=== PATIENT | female | born 1935 ===

== ENCOUNTER 2018-05-19 15:27 | Inpatient (IN) | payer OTHER, MEDICAID ==
[~2018-05-19] VITALS: Ht 157.5 cm; Wt 59.0 kg
[2018-05-19] MEDS ORDERED: ASPI81TA31 PO (15:39)
[2018-05-19] MEDS ORDERED: LORA0.5T PO (15:39)
[2018-05-19] MEDS ORDERED: CARB200T PO (15:39)
[2018-05-19] MEDS ORDERED: SIMV40TA5 PO (15:39)
[2018-05-19] MEDS ORDERED: LITH150C PO (15:39)
[2018-05-19] MEDS ORDERED: ENAL5TAB PO (15:39)
[2018-05-19 16:03] LABS: BASOPHILS # (AUTO) 0.1 K/uL (0.0-8.0); BASOPHILS % (AUTO) 1.1 % (0.0-2.0); EOSINOPHILS # (AUTO) 0.3 K/uL (0.0-0.7); EOSINOPHILS % (AUTO) 5.1 % (0.0-7.0); HEMATOCRIT 34.4 % (31.2-41.9); HEMOGLOBIN 11.7 g/dL (10.9-14.3); LYMPHOCYTES # (AUTO) 1.8 K/uL (20.0-40.0); LYMPHOCYTES % (AUTO) 29.7 % (20.5-51.5); MEAN CORPUSCULAR HEMOGLOBIN 32.3 uug (24.7-32.8); MEAN CORPUSCULAR HGB CONC 34 g/dL (32.3-35.6); MEAN CORPUSCULAR VOLUME 95.4 fL (75.5-95.3); MONOCYTES # (AUTO) 0.4 K/uL (2.0-10.0); MONOCYTES % (AUTO) 6.8 % (0.0-11.0); NEUTROPHILS # (AUTO) 3.5 K/uL (1.8-8.9); NEUTROPHILS % (AUTO) 57.3 % (38.5-71.5); PLATELET COUNT (AUTO) 168 K/uL (179-408); RED BLOOD CELL COUNT(AUTO) 3.61 MIL/uL (3.63-4.92); WHITE BLOOD COUNT (AUTO) 6.1 K/uL (3.8-11.8)
[2018-05-19 16:11] LABS: CARBON DIOXIDE 26 mmol/L (21-32); CHLORIDE 106 mmol/L (98-107); CREATININE 1.3 mg/dL (0.6-1.3); GLUCOSE 96 mg/dL (74-106); POTASSIUM 4.4 mmol/L (3.5-5.1); UREA NITROGEN, BLOOD 22 mg/dL (7-18)
[2018-05-19 16:17] LABS: ALANINE AMINOTRANSFERASE 18 U/L (14-59); ALKALINE PHOSPHATASE 120 U/L (50-136); ASPARTATE AMINOTRANSFERASE 12 U/L (15-37); BILIRUBIN,DIRECT 0.1 mg/dL (0.0-0.2); BILIRUBIN,TOTAL 0.2 mg/dL (0.2-1.0); TOTAL PROTEIN, SERUM 7.7 g/dL (6.4-8.2)
[2018-05-19 16:23] LABS: ETHANOL < 3 MG/DL (0-0)
[2018-05-19 16:24] LABS: *BILIRUBIN,URIN NEGATIVE (NEGATIVE); *BLOOD, URINE NEGATIVE (NEGATIVE); *CLARITY,URINE CLEAR (CLEAR); *COLOR,URINE LIGHT YELLOW (YELLOW); *KETONES,URINE NEGATIVE (NEGATIVE); *PROTEIN,URINE NEGATIVE (NEGATIVE); *UROBILINOGEN,URINE 0.2 E.U./dl (NORMAL); LEUKOCYTE ESTERASE ,URINE TRACE (NEGATIVE); NITRITE, URINE NEGATIVE (NEGATIVE); PH,URINE 5.5 (5.0-8.0); UGLUCOSE NEGATIVE (NEGATIVE)
[2018-05-19 16:25] LABS: THYROID STIMULATING HORMONE 0.525 mIU/mL (0.358-3.740)
[2018-05-19 16:35] LABS: *AMPHETAMINE, URINE NEGATIVE (NEGATIVE); *BARBITURATE, URINE NEGATIVE (NEGATIVE); *CANNABINOID, URINE NEGATIVE (NEGATIVE); *COCCAINE, URINE NEGATIVE (NEGATIVE); *OPIATE, URINE NEGATIVE (NEGATIVE); *PHENCYCLIDINE SCREEN,URINE NEGATIVE (NEGATIVE)
[2018-05-19 16:50] LABS: SQUAMOUS EPITHELIAL CELL,UR FEW /HPF (NONE SEEN)
[2018-05-19] MEDS ORDERED: ZOLPIDEM 5 MG TABLET PO PRN (21:15)
[2018-05-19] MEDS ORDERED: MAG HYDROX/AL HYDROX/SIMETH 30 ML LIQUID UDC PO PRN (21:15)
[2018-05-19] MEDS ORDERED: MAGNESIUM HYDROXIDE 30 ML LIQUID UDC PO PRN ×2 (21:15→23:45)
[2018-05-19] MEDS ORDERED: CLONAZEPAM 0.5 MG TABLET PO SCH (21:15)
[2018-05-19] MEDS ORDERED: ACETAMINOPHEN 325 MG TABLET PO PRN ×2 (21:15→23:45)
[2018-05-19 21:30] VITALS: BP 142/89
[2018-05-19] MEDS ORDERED: CLONAZEPAM 0.5 MG TABLET PO PRN (22:45)
[2018-05-19] MEDS ORDERED: Z GUARD REMEDY PASTE 57 GM TUBE TOP PRN (23:45)
[2018-05-19] MEDS ORDERED: TEMAZEPAM 15 MG CAPSULE PO PRN (23:45)
[2018-05-19] MEDS ORDERED: LORAZEPAM 0.5 MG TABLET PO PRN (23:45)
[2018-05-19] MEDS ORDERED: HYDROCODONE/APAP 5-325MG TABLET PO PRN (23:45)
[2018-05-19] MEDS ORDERED: ONDANSETRON 4 MG/2 ML VIAL IV PRN (23:45)
[2018-05-20] MEDS: SULFAMETH/TRIMETH 800/160 MG TABLET PO SCH ×3 (00:45→20:36)
[2018-05-20] MEDS ORDERED: SULFAMETH/TRIMETH 800/160 MG TABLET PO SCH (00:45)
[2018-05-20] MEDS ORDERED: CLONAZEPAM 0.5 MG TABLET PO PRN (00:45)
[2018-05-20] MEDS ORDERED: CEPHALEXIN MONOHYDRATE 250 MG CAPSULE PO SCH (06:00)
[2018-05-20 06:23] LABS: BASOPHILS # (AUTO) 0.1 K/uL (0.0-8.0); BASOPHILS % (AUTO) 1.2 % (0.0-2.0); EOSINOPHILS # (AUTO) 0.3 K/uL (0.0-0.7); EOSINOPHILS % (AUTO) 6.2 % (0.0-7.0); HEMATOCRIT 33.8 % (31.2-41.9); LYMPHOCYTES # (AUTO) 1.5 K/uL (20.0-40.0); MEAN CORPUSCULAR HEMOGLOBIN 32.8 uug (24.7-32.8); MEAN CORPUSCULAR HGB CONC 35 g/dL (32.3-35.6); MEAN CORPUSCULAR VOLUME 92.8 fL (75.5-95.3); MONOCYTES # (AUTO) 0.4 K/uL (2.0-10.0); MONOCYTES % (AUTO) 7.8 % (0.0-11.0); NEUTROPHILS # (AUTO) 2.9 K/uL (1.8-8.9); NEUTROPHILS % (AUTO) 55.8 % (38.5-71.5); PLATELET COUNT (AUTO) 153 K/uL (179-408); RED BLOOD CELL COUNT(AUTO) 3.65 MIL/uL (3.63-4.92); WHITE BLOOD COUNT (AUTO) 5.2 K/uL (3.8-11.8)
[2018-05-20 07:00] LABS: ALANINE AMINOTRANSFERASE 25 U/L (14-59); ALKALINE PHOSPHATASE 106 U/L (50-136); ASPARTATE AMINOTRANSFERASE 14 U/L (15-37); BILIRUBIN,TOTAL 0.5 mg/dL (0.2-1.0); CARBON DIOXIDE 24 mmol/L (21-32); CHLORIDE 110 mmol/L (98-107); CHOLESTEROL 164 mg/dL (<200); CREATININE 1.2 mg/dL (0.6-1.3); GLUCOSE 98 mg/dL (74-106); HDL CHOLESTEROL 77 mg/dL (40-60); MAGNESIUM 1.9 mg/dL (1.8-2.4); PHOSPHOROUS 3.9 mg/dL (2.5-4.9); POTASSIUM 4.4 mmol/L (3.5-5.1); TRIGLYCERIDES 65 MG/DL (30-150); UREA NITROGEN, BLOOD 20 mg/dL (7-18)
[2018-05-20 07:30] VITALS: BP 169/73
[2018-05-20] MEDS: ASPIRIN 81 MG TAB.CHEW PO SCH (09:48)
[2018-05-20] MEDS: ENALAPRIL 5 MG TABLET PO SCH (09:49)
[2018-05-20] MEDS ORDERED: CLONIDINE HCL 0.1 MG TABLET PO PRN (11:15)
[2018-05-20] MEDS ORDERED: LITHIUM CARBONATE 150 MG PO SCH (12:30)
[2018-05-20] MEDS: LITHIUM CARBONATE 300 MG TABLET PO SCH ×2 (14:05→20:36)
[2018-05-20 15:35] VITALS: BP 102/50
[2018-05-20] MEDS: SIMVASTATIN 40 MG TABLET PO SCH (17:19)
[2018-05-20] MEDS: CARBAMAZEPINE 200 MG TABLET PO SCH (17:19)
[2018-05-20 20:34] VITALS: BP 143/62
[2018-05-21] MEDS: CLONAZEPAM 0.5 MG TABLET PO PRN ×2 (03:40→08:39)
[2018-05-21 08:00] VITALS: BP 114/69
[2018-05-21] MEDS: SULFAMETH/TRIMETH 800/160 MG TABLET PO SCH ×3 (08:39→20:16)
[2018-05-21] MEDS: CARBAMAZEPINE 200 MG TABLET PO SCH ×2 (08:39→16:57)
[2018-05-21] MEDS: ASPIRIN 81 MG TAB.CHEW PO SCH (08:39)
[2018-05-21] MEDS: ENALAPRIL 5 MG TABLET PO SCH (08:41)
[2018-05-21] MEDS: LITHIUM CARBONATE 300 MG TABLET PO SCH ×3 (08:41→20:16)
[2018-05-21 14:53] VITALS: BP 99/51
[2018-05-21] MEDS: SIMVASTATIN 40 MG TABLET PO SCH (16:58)
[2018-05-21 20:13] VITALS: BP 97/62
[2018-05-22 07:30] VITALS: BP 117/62
[2018-05-22] MEDS: LITHIUM CARBONATE 300 MG TABLET PO SCH ×2 (08:11→20:19)
[2018-05-22] MEDS: CARBAMAZEPINE 200 MG TABLET PO SCH ×2 (08:12→17:08)
[2018-05-22] MEDS: SULFAMETH/TRIMETH 800/160 MG TABLET PO SCH ×2 (08:12→20:19)
[2018-05-22] MEDS: ENALAPRIL 5 MG TABLET PO SCH (08:12)
[2018-05-22] MEDS: ASPIRIN 81 MG TAB.CHEW PO SCH (08:12)
[2018-05-22] MEDS: CLONAZEPAM 0.5 MG TABLET PO PRN (09:39)
[2018-05-22 16:38] VITALS: BP 121/64
[2018-05-22] MEDS: SIMVASTATIN 40 MG TABLET PO SCH (17:23)
[2018-05-22 20:00] VITALS: BP 103/60
[2018-05-22] MEDS ORDERED: OLANZAPINE ZYDIS 5 MG TAB.RAPDIS PO SCH (21:00)
[2018-05-23 07:30] VITALS: BP 109/59
[2018-05-23] MEDS: ENALAPRIL 5 MG TABLET PO SCH (08:51)
[2018-05-23] MEDS: SULFAMETH/TRIMETH 800/160 MG TABLET PO SCH ×2 (08:51→21:50)
[2018-05-23] MEDS: LITHIUM CARBONATE 300 MG TABLET PO SCH ×2 (08:51→21:51)
[2018-05-23] MEDS: ASPIRIN 81 MG TAB.CHEW PO SCH (08:51)
[2018-05-23] MEDS: CARBAMAZEPINE 200 MG TABLET PO SCH ×2 (08:51→17:26)
[2018-05-23 16:22] VITALS: BP 93/56
[2018-05-23] MEDS: SIMVASTATIN 40 MG TABLET PO SCH (17:26)
[2018-05-23 20:34] VITALS: BP 92/52
[2018-05-23] MEDS: OLANZAPINE ZYDIS 5 MG TAB.RAPDIS PO SCH (21:51)
[2018-05-24 07:30] VITALS: BP 97/55
[2018-05-24] MEDS: CARBAMAZEPINE 200 MG TABLET PO SCH ×2 (08:29→17:00)
[2018-05-24] MEDS: ASPIRIN 81 MG TAB.CHEW PO SCH (08:29)
[2018-05-24] MEDS: SULFAMETH/TRIMETH 800/160 MG TABLET PO SCH ×2 (08:29→20:34)
[2018-05-24] MEDS: LITHIUM CARBONATE 300 MG TABLET PO SCH ×2 (08:29→20:35)
[2018-05-24] MEDS: ENALAPRIL 5 MG TABLET PO SCH (08:30)
[2018-05-24 15:16] VITALS: BP 111/63
[2018-05-24] MEDS: SIMVASTATIN 40 MG TABLET PO SCH (18:00)
[2018-05-24 20:10] VITALS: BP 135/55
[2018-05-24] MEDS: OLANZAPINE ZYDIS 5 MG TAB.RAPDIS PO SCH (20:36)
[2018-05-25 07:30] VITALS: BP 105/69
[2018-05-25] MEDS: CARBAMAZEPINE 200 MG TABLET PO SCH (08:35)
[2018-05-25] MEDS: LITHIUM CARBONATE 300 MG TABLET PO SCH (08:35)
[2018-05-25 08:36] VITALS: BP 105/69
[2018-05-25] MEDS: ENALAPRIL 5 MG TABLET PO SCH (08:36)
[2018-05-25] MEDS: SULFAMETH/TRIMETH 800/160 MG TABLET PO SCH (08:36)
[2018-05-25] MEDS: ASPIRIN 81 MG TAB.CHEW PO SCH (08:37)
== END 2018-05-25 13:45 | disposition home health service (06) | DRG 885 ==
LOC: ER 15:33 → GPS 21:19
PROVIDERS: ADMIT Psychiatry & Neurology Psychiatry; ATTEND Nurse Practitioner Acute Care
DX: F31.2 Bipolar disorder, current episode manic severe with psychotic features (principal); N18.3 Chronic kidney disease, stage 3 (moderate); N17.0 Acute kidney failure with tubular necrosis; N39.0 Urinary tract infection, site not specified; G40.909 Epilepsy, unspecified, not intractable, without status epilepticus; I13.10 Hypertensive heart and chronic kidney disease without heart failure, with stage 1 through stage 4 chronic kidney disease, or unspecified chronic kidney disease; Z79.82 Long term (current) use of aspirin; E78.5 Hyperlipidemia, unspecified; Z95.0 Presence of cardiac pacemaker; Z87.891 Personal history of nicotine dependence; M19.90 Unspecified osteoarthritis, unspecified site; R26.81 Unsteadiness on feet; Z86.73 Personal history of transient ischemic attack (TIA), and cerebral infarction without residual deficits; H54.7 Unspecified visual loss; I49.3 Ventricular premature depolarization; K57.30 Diverticulosis of large intestine without perforation or abscess without bleeding; I70.8 Atherosclerosis of other arteries; I67.2 Cerebral atherosclerosis; Z88.0 Allergy status to penicillin
CPT/HCPCS: 36415; 70030-TC; 70450; 71045; 80307; 83735; 83921; 84100; 84443; 85025; 85651; 93005; 97116; 97530; A4663; G0480